=== PATIENT | male | born 1970 | race Caucasian/White ===

== ENCOUNTER 2019-01-28 08:37 | Emergency (ER) | payer BC ==
--- OUTSIDE RECORDS SUMMARY | 2019-01-28 08:41 | XMS REPORT | Clinical Summary ---
:1970 Author Organization [facility] Address [address] [place] [address] Care Team Providers Name Role Phone Quinn Joe MD Primary Care Provider Allergies No Known Allergies Medications Medication Sig Dispensed Refills Start Date End Date Status calcium carbonate Chew 1 tablet 0 Active (TUMS) 200 mg daily. calcium (500 mg) chewable tablet meloxicam (MOBIC) TAKE 1 TABLET 30 tablet 1 08/27/2017 07/29/2018 Discontinued 15 mg tablet BY MOUTH EVERY DAY docusate sodium Take 1 capsule 30 capsule 0 08/09/2018 09/08/2018 (COLACE) 100 MG (100 mg total) capsule by mouth daily for 30 days. acetaminophen-cod Take 1 tablet 30 tablet 0 08/09/2018 09/08/2018 eine (TYLENOL by mouth every WITH CODEINE #3) 4 (four) hours 300-30 mg per as needed for tablet mild pain for up to 30 days. 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 06/12/2018 Overview: Added automatically from request for surgery [id number] Encounters Date Type Specialty Care Team Description 08/22/2018 Office Visit Urology Rodri, Post-operative MD Vinay state (Primary Dx) 08/09/2018 Telephone Urology Vinay Mace MD 08/08/2018 Surgery General Surgery Rodri, EXCISION OF MD Vinay PERINEAL [id number] 08/08/2018 Anesthesia Event General Surgery Puja Jacob FNP 08/08/2018 - Hospital Encounter General Internal Rodri, Perineal mass in 08/09/2018 Medicine MD Vinay male 07/29/2018 Pre-Admit Testing Pre-Admission Srikishen, Preop testing Appointment Testing MD Vinay (Primary Dx) 06/25/2018 Hospital Encounter Radiology Rodri, Perineal mass, male MD Vinay 06/12/2018 Prep for Surgery Urology Calderon, Perineal mass in [facility] [place] male (Primary Dx) 06/07/2018 Office Visit Urology Rodri, Perineal mass, male MD Vinay (Primary Dx) 03/06/2018 Hospital Encounter Radiology Gonzalo Mckeon MD 03/06/2018 Office Visit Orthopedic Surgery Gonzalo Mckeon Impingement syndrome of right shoulder (Primary Dx); MD Sudhakar Tendinitis of right rotator cuff; Labral tear of long head of biceps tendon, right, initial encounter 02/25/2018 Documentation Orthopedic Surgery Shanice Dai, Right shoulder MRI PROBATION OFFICER follow up appt 01/28/2018 Office Visit Orthopedic Surgery Gonzalo Mckeon Labral tear of long head of biceps tendon, right, initial encounter (Primary Dx); MD Sudhakar Incomplete tear of right rotator cuff after 01/27/2018 Family History Medical History Relation Name Comments No Known Problems Father Eulalio Ricardo Cancer Mother Vic Jacques Breast Cancer Heart disease Mother Vic Jacques Relation Name Status Comments Father Eulalio Ricardo Alive Mother Vic Jacques Alive Social History Tobacco Use Types Packs/Day Years Used Date Former Smoker Cigarettes 1 15 Quit: 06/14/2000 Smokeless Tobacco: Never Used Alcohol Use Drinks/Week oz/Week Comments Yes 2 Cans of beer 2x week Sex Assigned at Date Recorded Not on file Job Start Date Occupation Industry Not on file Not on file Not on file Travel History Travel Start Travel End No recent travel history available. Last Filed Vital Signs Vital Sign Reading Time Taken Blood Pressure 119/76 08/09/2018 7:45 AM [employer] Pulse 72 08/09/2018 7:45 AM [employer] Temperature 35.6 C (96 F) 08/09/2018 7:45 AM [employer] Respiratory Rate 16 08/09/2018 7:45 AM [employer] Oxygen Saturation 97% 08/09/2018 7:45 AM [employer] Inhaled Oxygen Concentration - - Weight 92.1 kg (203 lb) 08/08/2018 1:00 PM [employer] Height 182.9 cm (6') 08/08/2018 1:00 PM [employer] Body Mass Index 27.53 08/08/2018 1:00 PM [employer] Plan of Treatment Health Maintenance Due Date Last Done Comments COLON CANCER SCREENING 2018 SHINGLES VACCINES (#1) 2018 INFLUENZA VACCINE 04/10/2019 09/18/2018 Procedures Procedure Name Priority Date/Time Associated Comments Diagnosis SURGICAL PATHOLOGY Routine 08/08/2018 10:34 Results for this REQUEST AM [employer] procedure are in the results section. URINALYSIS SCREEN AND Timed 08/08/2018 8:08 Perineal mass in Results for this MICROSCOPY, WITH AM [employer] male procedure are in REFLEX TO CULTURE the results section. URINE CULTURE Timed 08/08/2018 8:08 Results for this AM [employer] procedure are in the results section. WA AN ELECTIVE Routine 08/08/2018 7:[address] AM [employer] Procedure Note - Eliu Everett DO - 08/08/2018 7:52 AM [employer] ANESTHESIA INTUBATION Date/Time: 08/08/2018 7:37 AM Performed by: Eliu Everett DO Authorized by: Eliu Everett DO Location: OR Urgency: Elective Difficult Airway: No Anesthesiologist: Eliu Everett DO Preoxygenated with 100% O2: Yes Mask Ventilation: Easy mask Final Airway Type: Supraglottic airway Final LMA: Flexible LMA Size: 4 Number of Attempts at Approach: 1 POC GLUCOSE Routine 08/08/2018 6:40 Results for this AM [employer] procedure are in the results section. ESTIMATED GFR Routine 07/29/2018 10:09 Results for this AM [employer] procedure are in the results section. TYPE AND SCREEN Routine 07/29/2018 10:09 Results for this AM [employer] procedure are in the results section. COMPREHENSIVE METABOLIC Routine 07/29/2018 10:09 Preop testing Results for this PANEL AM [employer] procedure are in the results section. HC COMPLETE BLD COUNT Routine 07/29/2018 10:09 Preop testing Results for this W/AUTO DIFF AM [employer] procedure are in the results section. PROTHROMBIN TIME WITH Routine 07/29/2018 10:09 Preop testing Results for this INR AM [employer] procedure are in the results section. PARTIAL THROMBOPLASTIN Routine 07/29/2018 10:09 Preop testing Results for this TIME (PTT) AM [employer] procedure are in the results section. ECG PRE/POST OP Routine 07/29/2018 10:04 Preop testing Results for this AM [employer] procedure are in the results section. URINALYSIS, AUTOMATED Routine 07/29/2018 9:20 Preop testing Results for this WITH MICROSCOPY AM [employer] procedure are in the results section. GRAM STAIN Routine 07/29/2018 9:20 Results for this AM [employer] procedure are in the results section. URINE CULTURE Routine 07/29/2018 9:20 Preop testing Results for this AM [employer] procedure are in the results section. MRI PELVIS W WO Routine 06/25/2018 7:20 Perineal mass, male Results for this CONTRAST PM CDT procedure are in the results section. POC URINALYSIS DIPSTICK Routine 06/07/2018 11:11 Perineal mass, male Results for this AM CDT procedure are in the results section. WA ARTHROCENTESIS Routine 03/06/2018 8:40 Impingement Results for this ASPIR&/INJ MAJOR AM CDT syndrome of right procedure are in JT/BURSA W/O US shoulder the results Tendinitis of right section. rotator cuff Labral tear of long head of biceps tendon, right, initial encounter MRI UPPER EXTREMITY Routine 02/22/2018 9:05 Results for this EXTERNAL STUDY AM CDT procedure are in the results section. after 01/27/2018 Results Surgical pathology request (08/08/2018 10:34 AM [employer]) [facility] DEPARTMENT OF PATHOLOGY AND GENOMIC MEDICINE Surgical pathology See link below [facility] DEPARTMENT OF report for PDF Lab PATHOLOGY AND Report GENOMIC MEDICINE Result status This is Final [facility] DEPARTMENT OF Report for PATHOLOGY AND [id number] GENOMIC MEDICINE Specimen Performing Organization Address City/State/Zipcode Phone Number [facility] DEPARTMENT OF PATHOLOGY [address] [place] [address] AND GENOMIC MEDICINE Urinalysis screen and microscopy, with reflex to culture (08/08/2018 8:08 AM [employer]) Specimen site Catheterized [facility] Color, UA Straw [facility] Appearance, UA Clear [facility] Specific gravity, 1.006 1.001 - 1.030 [facility] pH, UA 6.0 5.0 - 9.[address] [facility] Protein, UA Negative Negative [facility] Glucose, UA Negative Negative [facility] Ketones, UA Negative Negative [facility] Bilirubin, UA Negative Negative [facility] Blood, UA Negative Negative [facility] Nitrite, UA Negative Negative [facility] Urobilinogen, UA <2.0 <2.0 E.U./dL [facility] Leukocyte esterase, Negative Negative [facility] UA [facility] WBC, UA <1 0 - 1 /HPF [facility] RBC, UA <1 0 - 5 /HPF [facility] Bacteria, UA Few None seen [facility] Yeast, UA None seen [facility] Yeast with None seen [facility] pseudohyphae, UA [facility] Specimen Urine - Urine, catheter Performing Organization Address City/[facility] Cent[facility]ode Phone Number [facility] DEPARTMENT OF PATHOLOGY [address] [place] [address] Urine culture (08/08/2018 8:08 AM [employer])Only the most recent of2 resultswithin the time period is included. Pathologist [facility] Urine culture SEE COMMENTComment: [facility] Bacteriuria screen [facility] negative. Specimen Performing Organization Address City/[facility] Centercode Phone Number [facility] DEPARTMENT OF PATHOLOGY [address] [place] [address] POC glucose (08/08/2018 6:40 AM [employer]EL[employer]) Pathologist [facility] POC glucose 93 65 - 99 mg/dL CHANDRAKANT MARADIAGA Comment: [facility] Meter ID: [id number] Observer Electrical Prospecting: Aidee Olmedo Specimen Performing Organization Address City/[facility]/Zipcode Phone Number [facility] DEPARTMENT OF PATHOLOGY [address] [place] [address] Estimated GFR (07/29/2018 10:09 AM [employer]ELOPER) Pathologist [facility] Estimated GFR 67 mL/min/1.73 CHANDRAKANT MARADIAGA Comment: [address] StreetoryUnThe [facility] G1 >=90 Normal or high G2 60-89Mildly decreased G8f10-83Yrlivw to moderately decreased D2g59-74Jkhyykhclv to severely decreased G4 15-29Severely decreased G5 <15Kidney failure The eGFR was calculated using the Chronic Kidney Disease Epidemiology Collaboration (CKD-EPI) equation. Interpretation is based on recommendations of the National Kidney Foundation-Kidney Disease Outcomes Quality Initiative (NKF-KDOQI) published in 2014. Specimen Plasma specimen Performing Organization Address City/[facility]/Zipcode Phone Number [facility] DEPARTMENT OF PATHOLOGY [address] [place] [address] Partial thromboplastin time, activated (07/29/2018 10:09 AM [employer]ELOPER) PTT 35.4 23.0 - 36.0 [facility] Comment: [facility] PTT therapeutic range for unfractionated heparin is HOSPITAL 61.0-112.0 seconds which corresponds to Anti-Xa 0.3-0.7 U/ml. Specimen Blood Performing Organization Address [facility] Centercode Phone Number [facility] DEPARTMENT OF PATHOLOGY [address] [place] [address] Prothrombin time with INR (07/29/2018 10:09 AM [employer]) Prothrombin time 13.6 11.5 - 14.5 [facility] INR 1.1 CHASE Comment: HIREN ARAGON The International Normalized Ratio (INR) is a therapeutic [facility] monitoring tool for patients who are stable on oral anticoagulant therapy. An INR of 2.0-3.0 is suggested for deep vein thrombosis/pulmonary embolism. Specimen Blood Performing Organization Address City/[facility]/Zipcode Phone Number [facility] DEPARTMENT OF PATHOLOGY [address] [place] [address] CBC with platelet and differential (07/29/2018 10:09 AM [employer]ELOPER) WBC 7.2 4.5 - 11.0 k/uL [facility] RBC 5.68 4.40 - 6.00 [facility] m/uL [facility] HGB 15.6 14.0 - 18.0 [facility] g/dL [facility] HCT 46.6 41.0 - 51.0 % [facility] MCV 82.0 82.0 - 100.[address] [facility] MCH 27.5 27.0 - 34.[address] [facility] MCHC 33.5 31.0 - 37.0 [facility] g/dL [facility] RDW - SD 38.5 37.0 - 55.[address] [facility] MPV 10.5 6.9 - 11.[address] [facility] Platelet count 241 150 - 400 K/uL [facility] Nucleated RBC 0.00 /[address] [facility] Neutrophils 71.5 (H) 39.0 - 69.0 % [facility] Lymphocytes 17.5 (L) 25.0 - 45.0 % [facility] Monocytes 8.3 0.0 - 10.0 % [facility] Eosinophils 1.7 0.0 - 5.0 % [facility] Basophils 0.7 0.0 - 1.0 % [facility] Immature granulocytes 0.3 0.0 - 1.0 % [facility] Specimen Blood Performing Organization Address City/State/Zipcode Phone Number [facility] DEPARTMENT OF PATHOLOGY [id number] [place] [address] [place] [address] HOSPITAL Type and screen (07/29/2018 10:09 AM [employer]) ABO grouping O [facility] Rh type POS [facility] Antibody screen (gel) NEG [facility] Specimen Blood Performing Organization Address City/State/Zipcode Phone Number [facility] DEPARTMENT OF PATHOLOGY [address] [place] [address] [place] [address] HOSPITAL Comprehensive metabolic panel (07/29/2018 10:09 AM [employer]) Sodium 141 135 - 148 mEq/L [facility] Potassium 4.4 3.5 - 5.0 mEq/L [facility] Chloride 104 98 - 112 mEq/L [facility] CO2 25 24 - 31 mEq/L [facility] Anion gap 12@ANIO 7 - 15 mEq/L [facility] BUN 14 6 - 20 mg/dL [facility] Creatinine 1.25 (H) 0.70 - 1.20 [facility] mg/dL [facility] Glucose 97 65 - 99 mg/dL [facility] Calcium 9.2 8.3 - 10.2 [facility] mg/dL [facility] Protein 7.0 6.3 - 8.3 g/dL [facility] Albumin 4.4 3.5 - 5.0 g/dL [facility] A/G ratio 1.7 0.7 - 3.[address] [facility] Alkaline phosphatase 62 40 - 129 U/L [facility] AST 28 10 - 50 U/L [facility] ALT 33 5 - 50 U/L [facility] Total bilirubin 1.4 (H) 0.2 - 1.2 mg/dL [facility] Specimen Plasma specimen Performing Organization Address City/State/Zipcode Phone Number [facility] DEPARTMENT OF PATHOLOGY [address] [place] [address] AND GENOMIC MEDICINE [facility] [address] [place] [address] HOSPITAL ECG Pre/Post Op (07/29/2018 10:04 AM [employer]) Ventricular rate 64 [facility] Atrial rate 64 [facility] WA interval 128 [facility] QRSD interval 94 [facility] QT interval 450 [facility] QTC interval 464 [facility] P axis 1 62 [facility] QRS axis 1 30 [facility] T wave axis 185 [facility] EKG impression Normal sinus rhythm-Left atrial enlargement-Incomplete right bundle branch block-Left ventricular hypertrophy with repolarization abnormality -Nonspecific ST abnormality-Abnormal ECG-No previous ECGs juan [facility] MUSE ilable- Specimen Narrative Performed At Performing Organization Address City/State/Zipcode Phone Number [facility] M[facility] [address] [place] [address] Urinalysis, automated with microscopy (07/29/2018 9:20 AM [employer]ELOPER) Color, UA Straw [facility] Appearance, UA Clear [facility] Specific gravity, UA 1.005 1.001 - 1.[address] [facility] pH, UA 5.0 5.0 - 9.[address] [facility] Protein, UA Negative Negative [facility] Glucose, UA Negative Negative [facility] Ketones, UA Negative Negative [facility] Bilirubin, UA Negative Negative [facility] Blood, UA Negative Negative [facility] Nitrite, UA Negative Negative [facility] Urobilinogen, UA <2.0 <2.0 E.U./dL [facility] Leukocyte esterase, Negative Negative [facility] Epithelial cells, UA <1 /HPF [facility] WBC, UA <1 0 - 1 /HPF [facility] RBC, UA <1 0 - 5 /HPF [facility] Bacteria, UA None seen None seen [facility] Yeast, UA None seen [facility] Yeast with None seen [facility] pseudohyphae, UA [facility] Specimen Urine Performing Organization Address City/[facility] Centerconh Phone Number [facility] DEPARTMENT OF PATHOLOGY [address] [place] [address] AND [facility] [id number] [place] [address] HOSPITAL Gram stain (07/29/2018 9:20 AM [employer] DEVELOPER) Gram stain result No WBC's or organisms seen. ZHU FAITH Comment: HOSPITAL Specimen Information Specimen Source: Urine Specimen Site: Clean catch Specimen Urine Performing Organization Address City/[facility] Centerconh Phone Number [facility] DEPARTMENT OF PATHOLOGY AND [address] [place] [phone] MRI Pelvis W Wo Contrast (06/25/2018 7:20 PM CDT) Specimen Narrative Performed At EXAMINATION:MRI PELVIS W WO CONTRAST [facility] CLINICAL HISTORY:N50.9 Disorder of male genital organsunspecified, Masslumpor adenopathypelvis, patient with right perineal mass- assess for size and involvement of any other soft ti ssue structures (urethraetc)- PLEASE SCAN ENTIRE PELVIS DOWN TO MID-THIGH LEVEL TECHNIQUE: Multiplanar multisequence MR images of the pelvis were obtained pre - and post intravenous administration of Gadolinium. COMPARISON:None. FINDINGS: There is a large right perineal lipoma corresponding with area of concern. This extends from the perioneum and scrotum just posterior to the testicles to the right perianal fat. The exophytic part centr al to the medial thigh spans 14 8 cm in length, 3.1 cm transverse and 7.9 cm craniocaudal. There is no suspicious enhancement of this region following contrast. Urinary bladder is unremarkable. Prostate and seminal vesicles are unremarkable. No pathological adenopathy is identified in the pelvis. There is no ascites. Normal enhancement of pelvic vessels noted. Bones are unremarkable without edema or suspicious enhancement. Susceptibility artifact is noted along the anterior abdominal wall consistent with prior hernia repair, no recurrent hernia identified in either inguinal region. 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 [facility]-[id number] Procedure Note Interface, Radiology Results Incoming - 06/25/2018 7:37 PM CDT EXAMINATION: MRI PELVIS W WO CONTRAST CLINICAL HISTORY: N50.9 Disorder of male genital organs unspecified, Mass lump or adenopathy pelvis, patient with right perineal mass- assess for size and involvement of any other soft tissue structures (urethra etc)- PLEASE SCAN ENTIRE PELVIS DOWN TO MID-THIGH LEVEL TECHNIQUE: Multiplanar multisequence MR images of the pelvis were obtained pre - and post intravenous administration of Gadolinium. COMPARISON: None. FINDINGS: There is a large right perineal lipoma corresponding with area of concern. This extends from the perioneum and scrotum just posterior to the testicles to the right perianal fat. The exophytic part central to the medial thigh spans 14 8 cm in length, 3.1 cm transverse and 7.9 cm craniocaudal. There is no suspicious enhancement of this region following contrast. Urinary bladder is unremarkable. Prostate and seminal vesicles are unremarkable. No pathological adenopathy is identified in the pelvis. There is no ascites. Normal enhancement of pelvic vessels noted. Bones are unremarkable without edema or suspicious enhancement. Susceptibility artifact is noted along the anterior abdominal wall consistent with prior hernia repair, no recurrent hernia identified in either inguinal region. 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 [facility]-[id number] Performing Organization Address City/State/Zipconh Phone Number [facility] [address] [place] [address] POC urinalysis dipstick (06/07/2018 11:11 AM CDT) Color urine, POC Yellow Clarity urine, POC Clear Glucose urine, POC Negative Negative Bilirubin urine, POC Negative Negative Ketones urine, POC Negative Negative Specific gravity urine, 1.015 1.005 - 1.030 POC Blood urine, POC Negative Negative pH urine, POC 6.0 5.0, 5.5, 6.0, 6.5, 7.0, 7.5, 8.0, 8.5 Protein urine, POC Negative Negative Urobilinogen urine, POC <2.0 <2.0 Nitrite urine, POC Negative Negative Leukocyte esterase Negative Negative urine, POC Specimen Urine Large Joint Arthrocentesis (03/06/2018 8:40 AM CDT) Narrative Performed At Gonzalo Mckeon MD 03/06/2018 12:23 PM Large Joint Arthrocentesis Consent given by: patient Supporting Documentation Indications: pain Procedure Details Preparation: Patient was prepped and draped in the usual sterile fashion Ultrasound guided: no Location: shoulder - R glenohumeral Right side: Needle size: 22 G Approach: posterior (2ml of 1% lidocaine, 2ml of 0.5% marcaine) Right shoulder medications administered: 40 mg methylPREDNISolone acetate 40 mg/mL Patient tolerance: patient tolerated the procedure well with no immediate complications MRI Upper Extremity External Study (02/22/2018 9:05 AM CDT) Specimen Narrative Performed At This exam was not acquired at a [facility] facility and has not been [facility] interpreted by a [facility] Provider.The exam was imported into our imaging system for comparisons purposes. Performing Organization Address [facility] [facility] Phone Number PEGGY [phone] [place] [address] after 01/27/2018 ([place]) [place] [address] Advance Directives Patient has advance care planning documents, and code status on file. For more information, please contact:Chandrakant Maradiaga[address] [place] [address] Code Status Date Activated Date Inactivated Comments Full Code 08/08/2018 10:33 AM 08/09/2018 2:29 PM Code Status decision reached by: Patient
[2019-01-28 09:56] LABS: Absolute Lymphocytes (CBC) 1.1 K/uL (0.7-4.9); Absolute Monocytes 0.4 K/uL (0.1-1.3); Absolute Neutrophil 3.2 K/uL (1.8-8.0); Basophils % 2.1 % (0-1.3); Eosinophils % 1.8 % (0-4.4); Hematocrit 44.9 % (39.6-49.0); Lymphocytes % 21.6 % (15.3-44.8); Monocytes % 8.9 % (3.3-12.3); RBC Red Blood Cell Count 5.61 M/uL (4.33-5.43)
[2019-01-28 09:59] LABS: BUN Blood Urea Nitrogen 14 mg/dL (7-18); Bicarbonate 27 mmol/L (21-32); Glucose Level 102 mg/dL (74-106); Magnesium 2.4 mg/dL (1.8-2.4); NT PRO-BNP 450 pg/mL (<125); Potassium 3.9 mmol/L (3.5-5.1); Sodium Level 143 mmol/L (136-145); Troponin (Emerg Dept Use Only) < 0.02 ng/mL (0.0-0.045)
[2019-01-28] MEDS ORDERED: CALCIUM GLUCONATE 1gm/100 ML NS (4.65 mEq/100mL) IV ONE ×2 (10:15)
--- NOTE | 2019-01-28 10:21 | RAD REPORT ---
EXAM DESCRIPTION: RAD - Chest Single View - 01/28/2019 9:53 am CLINICAL HISTORY: PALPITATIONS Chest pain. COMPARISON: CHEST SINGLE VIEW dated 11/24/2009; CHEST PA AND LAT 2 VIEW dated 06/19/2000 FINDINGS: Portable technique limits examination quality. The lungs are grossly clear. The heart is normal in size. No displaced fractures. IMPRESSION: No acute intrathoracic process suspected.
--- NOTE | 2019-01-28 11:00 | EDPHYS ---
Physician Documentation [facility] Name: Tim Ricardo Age: 48 yrs Sex: Male : 1970 Arrival Date: 01/28/2019 Time: 08:41 Bed 7 Private MD: Quinn Joe ED Physician Malachi Segura HPI: 01/28 09:02 This 48 yrs old Male presents to ER via Unassigned with complaints of rn Palpitations. 09:02 The patient presents with a history of irregular heart beat, heart skipping beats. rn Context: The symptoms occur at rest. Onset: The symptoms/episode began/occurred last night. 09:03 Duration: The patient or guardian reports multiple episodes, that wax and wane. rn Modifying factors: The symptoms are aggravated by nothing. The symptoms are alleviated by nothing. Severity of symptoms: At their worst the symptoms were mild in the emergency department the symptoms are unchanged. The patient has not experienced similar symptoms in the past. REports palpitations, feels irregular, not racing, a little lightheaded, no syncope, began last night, didn't go away so came in. No chest pain. No sob. . Historical: - Allergies: 08:45 No Known Allergies; aa5 - Home Meds: 08:45 None [Active]; aa5 - PMHx: 08:45 PE; DVT to R leg; aa5 - PSHx: 08:45 Hernia repair; Lyphoma removed from groin area; aa5 - Social history:: Smoking status: Patient/guardian denies using tobacco, the patient reports quitting approximately 20 years ago. - Family history:: not pertinent. - Ebola Screening: : No symptoms or risks identified at this time. - Hospitalizations: : No recent hospitalization is reported. ROS: 09:03 Constitutional: Negative for fever, chills, and weight loss, Eyes: Negative for injury, rn pain, redness, and discharge, Neck: Negative for injury, pain, and swelling, Cardiovascular: + palpitations, negative for chest pain Respiratory: Negative for shortness of breath, cough, wheezing, and pleuritic chest pain, Abdomen/GI: Negative for abdominal pain, nausea, vomiting, diarrhea, and constipation, MS/Extremity: Negative for injury and deformity, Skin: Negative for injury, rash, and discoloration, Neuro: Negative for headache, numbness, tingling, and seizure. Exam: 08:59 ECG was reviewed by the Attending Physician. rn 09:03 Constitutional: This is a well developed, well nourished patient who is awake, alert, rn and in no acute distress. Head/Face: Normocephalic, atraumatic. Eyes: Pupils equal round and reactive to light, extra-ocular motions intact. Lids and lashes normal. Conjunctiva and sclera are non-icteric and not injected. Cornea within normal limits. Periorbital areas with no swelling, redness, or edema. ENT: MMM Cardiovascular: Regular rate, irregular rhythm, no murmur, no pulse deficit Respiratory: Lungs have equal breath sounds bilaterally, clear to auscultation. No increased work of breathing, no retractions or nasal flaring. Abdomen/GI: soft, non-tender MS/ Extremity: Pulses equal, no cyanosis. Neurovascular intact. Full, normal range of motion. Equal circumference. Neuro: Awake and alert, GCS 15, oriented to person, place, time, and situation. Cranial nerves II-XII grossly intact. Motor strength 5/5 in all extremities. Sensory grossly intact. Cerebellar exam normal. Normal gait. Vital Signs: 08:45 BP 112 / 77; Pulse 88; Resp 18 S; Temp 98.1(O); Pulse Ox 100% on R/A; Weight 90.72 kg aa5 (R); Height 5 ft. 11 in. (180.34 cm) (R); Pain 0/10; 09:35 BP 109 / 80; Pulse 85; Resp 18; Pulse Ox 97% on R/A; tw2 10:30 BP 130 / 77; Pulse 63; Resp 17; Pulse Ox 98% on R/A; tw2 11:27 BP 102 / 68; Pulse 71; Resp 17; Pulse Ox 97% on R/A; tw2 08:45 Body Mass Index 27.89 (90.72 kg, 180.34 cm) aa5 MDM: 08:46 Patient medically screened. rn 09:03 ED course: Walked to room without difficulty or assistance. 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 . 10:03 Test interpretation: by ED physician or midlevel provider: ECG, plain radiologic rn studies, CXR negative for pneumothorax or acute infiltrate. 10:57 Differential diagnosis: arrythmia, dehydration, stress disorder, electrolyte disorder. rn Data reviewed: vital signs, nurses notes, lab test result(s), EKG, radiologic studies, plain films, and as a result, I will discharge patient. Counseling: I had a detailed discussion with the patient and/or guardian regarding: the historical points, exam findings, and any diagnostic results supporting the discharge/admit diagnosis, lab results, radiology results, the need for outpatient follow up, to return to the emergency department if symptoms worsen or persist or if there are any questions or concerns that arise at home. Response to treatment: the patient's condition has returned to base line, the patient is now symptom free, and as a result, I will discharge patient. Special discussion: I discussed with the patient/guardian in detail that at this point there is no indication for admission to the hospital. It is understood, however, that if the symptoms persist or worsen the patient needs to return immediately for re-evaluation. Based on the history and exam findings, there is no indication for further emergent testing or inpatient evaluation. I discussed with the patient/guardian the need to see the furniture sales associate for further evaluation of the symptoms. ED course: No further PVCs, asymptomatic, only finding was hypocalcemia, given calcium gluconate here, normal vitals, d-dimer neg, will dc home with cardiology f/u, sees dr castaneda. Return precautions given and understood.. 10:59 ED course: ECG grossly unchanged compared to previous, patient states "always told ekg rn abnormal".. 01/28 09:03 Order name: Basic Metabolic Panel; Complete Time: 10:01/28 09:03 Order name: CBC with Diff; Complete Time: 10:01/28 09:03 Order name: Magnesium; Complete Time: 10:01/28 09:03 Order name: NT PRO-BNP; Complete Time: 10:01/28 09:03 Order name: Troponin (emerg Dept Use Only); Complete Time: 10:01/28 09:03 Order name: D-Dimer; Complete Time: 10:01/28 09:03 Order name: XRAY Chest (1 view); Complete Time: : rn 01/28 09:03 Order name: EKG; Complete Time: : rn 01/28 09:03 Order name: Cardiac monitoring; Complete Time: rn 01/28 09:03 Order name: EKG - Nurse/Tech; Complete Time: : rn 01/28 09:03 Order name: IV Saline Lock; Complete Time: rn 01/28 09:03 Order name: Labs collected and sent; Complete Time: rn 01/28 09:03 Order name: O2 Per Protocol; Complete Time: rn 01/28 09:03 Order name: O2 Sat Monitoring; Complete Time: rn EC: Rate is 70 beats/min. Rhythm is irregular. QRS Foster is Normal. NC interval is normal. rn QRS interval is normal. QT interval is normal. No Q waves. T waves are Inverted in leads I, aVL, V4, V5, V6. ST Segment is depressed in leads II, V4, V5, V6, 1-2mm. Clinical impression: NSR w/ Non-specific ST/T Changes and PVCs. Interpreted by me. Reviewed by me. Administered Medications: 10:34 Drug: Calcium Gluconate 1 grams Route: IVPB; Infused Over: 60 mins; Site: right sg antecubital; Disposition: 01/28/19 10:59 Discharged to Home. Impression: Ventricular premature depolarization, Palpitations, Hypocalcemia. - Condition is Stable. - Discharge Instructions: Palpitations, Premature Ventricular Contraction, Hypocalcemia, Adult. - Work release form, Medication Reconciliation Form, Thank You Letter, Antibiotic Education, Prescription Opioid Use form. - Follow up: Tony Castaneda MD; When: 5 - 6 days; Reason: Recheck today's complaints, Re-evaluation by your physician. - Problem is new. - Symptoms have improved. Signatures: Dispatcher [employer] EDMS Saji Aldridge RN RN Malachi Hollis MD MD rn Calderon, Audri, RN RN aa5 Corrections: (The following items were deleted from the chart) 11:49 10:59 01/28/2019 10:59 Discharged to Home. Impression: Ventricular premature sg depolarization; Palpitations; Hypocalcemia. Condition is Stable. Forms are Medication Reconciliation Form, Thank You Letter, Antibiotic Education, Prescription Opioid Use. Follow up: Tony Castaneda; When: 5 - 6 days; Reason: Recheck today's complaints, Re-evaluation by your physician. Problem is new. Symptoms have improved. rn
--- NOTE | 2019-01-28 11:00 | ER ---
Nurse's Notes [facility] Name: Tim Ricardo Age: 48 yrs Sex: Male : 1970 Arrival Date: 01/28/2019 Time: 08:41 Bed 7 Private MD: Quinn Joe Diagnosis: Ventricular premature depolarization;Palpitations;Hypocalcemia Presentation: 01/28 08:45 Presenting complaint: Patient states: "I feel my heart rhythm is weird". Pt denies aa5 heart racing. Pt reports symptoms began last night. Pt states "It causes me to feel short of breath every once in a while". Denies pain. Pt reports hx of DVT and PE, reports [address] trip over the weekend, pt states "I also drank 4 red bulls during the weekend and I usually never drink them". 08:45 Transition of care: patient was not received from another setting of care. Onset of aa5 symptoms was January 2019. Risk Assessment: Do you want to hurt yourself or someone else? Patient reports no desire to harm self or others. Initial Sepsis Screen: Does the patient meet any 2 criteria? No. Patient's initial sepsis screen is negative. Does the patient have a suspected source of infection? No. Patient's initial sepsis screen is negative. Care prior to arrival: None. 08:45 Acuity: SKYLER 3 aa5 08:45 Method Of Arrival: Ambulatory aa5 Historical: - Allergies: 08:45 No Known Allergies; aa5 - Home Meds: 08:45 None [Active]; aa5 - PMHx: 08:45 PE; DVT to R leg; aa5 - PSHx: 08:45 Hernia repair; Lyphoma removed from groin area; aa5 - Social history:: Smoking status: Patient/guardian denies using tobacco, the patient reports quitting approximately 20 years ago. - Family history:: not pertinent. - Ebola Screening: : No symptoms or risks identified at this time. - Hospitalizations: : No recent hospitalization is reported. Screenin:00 Abuse screen: Denies threats or abuse. Denies injuries from another. Nutritional sg screening: No deficits noted. Tuberculosis screening: No symptoms or risk factors identified. Never had TB. Fall Risk None identified. Assessment: 09:00 General: Appears in no apparent distress. well groomed, well developed, well nourished, sg Behavior is calm, cooperative, appropriate for age. Pain: Denies pain. Neuro: Level of Consciousness is awake, alert, obeys commands, Oriented to person, place, time, Oiler Helper are equal bilaterally Moves all extremities. Full function Gait is steady, Speech is normal, Facial symmetry appears normal. Cardiovascular: Capillary refill is brisk in bilateral fingers Patient's skin is warm and dry. Chest pain is denied. Cardiovascular: Reports palpitations, that are intermittent Heart tones S1 S2 present. Respiratory: Airway is patent Respiratory effort is even, unlabored, Respiratory pattern is regular, symmetrical. GI: Abdomen is round non-distended, Bowel sounds present X 4 quads. Reports tolerance of fluids, tolerance of food. : No signs and/or symptoms were reported regarding the genitourinary system. EENT: No signs and/or symptoms were reported regarding the EENT system. Derm: Skin is pink, warm \\T\\ dry. Musculoskeletal: No signs and/or symptoms reported regarding the musculoskeletal system. 09:35 Reassessment: Patient appears in no apparent distress at this time. No changes from tw2 previously documented assessment. Patient and/or family updated on plan of care and expected duration. Pain level reassessed. Patient is alert, oriented x 3, equal unlabored respirations, skin warm/dry/pink. 10:06 Reassessment: Patient appears in no apparent distress at this time. at bedside sg updating pt and pt family on results, order for Donal Gluc faxed to pharmacy. 11:09 Reassessment: Patient appears in no apparent distress at this time. Patient and/or sg family updated on plan of care and expected duration. Pain level reassessed. awaiting IV infusion of Donal Gluc to infuse prior to dc to home, pt stated understanding. Vital Signs: 08:45 BP 112 / 77; Pulse 88; Resp 18 S; Temp 98.1(O); Pulse Ox 100% on R/A; Weight 90.72 kg aa5 (R); Height 5 ft. 11 in. (180.34 cm) (R); Pain 0/10; 09:35 BP 109 / 80; Pulse 85; Resp 18; Pulse Ox 97% on R/A; tw2 10:30 BP 130 / 77; Pulse 63; Resp 17; Pulse Ox 98% on R/A; tw2 11:27 BP 102 / 68; Pulse 71; Resp 17; Pulse Ox 97% on R/A; tw2 08:45 Body Mass Index 27.89 (90.72 kg, 180.34 cm) aa5 ED Course: 08:41 Patient arrived in ED. mr 08:41 Quinn Joe MD is Private Physician. mr 08:44 Arm band placed on Patient placed in an exam room, on a stretcher. aa5 08:46 Malachi Segura MD is Attending Physician. rn 09:00 Patient has correct armband on for positive identification. Placed in gown. Bed in low sg position. Call light in reach. Side rails up X2. shelter monitor on. Pulse ox on. NIBP on. Warm blanket given. Head of bed elevated. 09:05 Triage completed. aa5 09:06 EKG done, by pool technician. reviewed by Malachi Segura MD. at1 09:18 Saji Aldridge RN is Primary Nurse. sg 09:18 Initial lab(s) drawn, by mt, sent to lab. Inserted saline lock: 20 gauge in right sg antecubital area, using aseptic technique. Blood collected. 09:53 XRAY Chest (1 view) In Process Unspecified. EDMS 10:59 Tony Castaneda MD is Referral Physician. rn 11:25 Awaiting: completion of IV medication prior to discharge. tw2 Administered Medications: 10:34 Drug: Calcium Gluconate 1 grams Route: IVPB; Infused Over: 60 mins; Site: right sg antecubital; Outcome: 10:59 Discharge ordered by MD. rn 11:49 Patient left the ED. sg Signatures: Dispatcher [employer] EDMS Saji Aldridge, RN RN trey GrijalvaaMichaelle mr Malachi Segura MD MD rn Calderon, Audri, RN RN aa5 Kelsey Barrett, lithography contact worker EKG Tat1 Paulina Campbell RN RN tw2
--- NOTE | 2019-01-28 13:25 | EKG ---
Test Date: 2019-01-28 Test Time: 08:50:04 Rough Rounder: TED MEASUREMENT RESULTS: Intervals: Rate: 70 NJ: 136 QRSD: 84 QT: 430 QTc: 464 [place]: P: 71 NJ: 136 QRS: 28 T: 186 INTERPRETIVE STATEMENTS: Sinus rhythm with occasional premature ventricular complexes with ventricular escape complexes Left ventricular hypertrophy with repolarization abnormality Abnormal ECG Compared to ECG 06/14/2000 12:43:00 Ventricular escape complex(es) now present Ventricular premature complex(es) now present Sinus bradycardia no longer present Electronically Signed On 01-28-19 13:24:49 CDT by Nikita Tate
== END 2019-01-28 11:49 | disposition home or self-care (01) ==
LOC: ER 08:37
DX: I49.3 Ventricular premature depolarization (principal); E83.51 Hypocalcemia; R00.2 Palpitations; Z86.711 Personal history of pulmonary embolism; Z86.718 Personal history of other venous thrombosis and embolism; Z87.891 Personal history of nicotine dependence
CPT/HCPCS: 36415; 71045; 80048; 83735; 83880; 84484; 85025; 85379; 93005; 96374; 99284; J0610